=== PATIENT | female | born 1945 | race African-American/Black ===

== ENCOUNTER 2016-12-28 09:26 | Emergency (ER) | payer MEDICARE ==
[~2016-12-28] VITALS: Ht 154.9 cm; Wt 55.8 kg
[~2016-12-28 09:26] MED LIST: LANS30CA PO; LISI1TAB7 PO
[2016-12-28] MEDS ORDERED: MECLIZINE HCL 12.5 MG TABLET. PO ONE (10:15)
--- NOTE | 2016-12-28 10:18 | PHYS DOC ---
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 Patient states she has dizziness when she turns corners. Patient also states she has increase dizziness when turning her head from the right to straight ahead. Patient has a history of HTN in which she has taken her BP medication this morning. She denies blurred vision, headache, SOA or chest pain. Patient states she has not taken anything for the dizziness. Review of Systems Review of Systems Constitutional: Denies fever or chills [] Eyes: Denies change in visual acuity, redness, or eye pain [] HENT: Denies nasal congestion or sore throat. C/o right ear buzzing Respiratory: Denies cough or shortness of breath [] Cardiovascular: No additional information not addressed in HPI [] GI: Denies abdominal pain, nausea, vomiting, bloody stools or diarrhea [] : Denies dysuria or hematuria [] Musculoskeletal: Denies back pain or joint pain [] Integument: Denies rash or skin lesions [] Neurologic: Denies headache, focal weakness or sensory changes. C/o dizziness Endocrine: Denies polyuria or polydipsia [] Current Medications Current Medications Current Medications Medications (Trade) Dose Ordered Sig/Angeles Start Time Stop Time Status Last Admin Dose Admin Meclizine HCl (Antivert) 25 mg 1X ONCE 12/28/16 10:15 12/28/16 10:16 DC 12/28/16 10:32 25 MG Allergies Allergies Allergies Coded Allergies Type Severity Reaction Last Updated Verified lactose Allergy Intermediate 03/17/14 Yes Physical Exam Physical Exam Constitutional: Well developed, well nourished, no acute distress, non-toxic appearance. [] HENT: Normocephalic, atraumatic, bilateral external ears normal, oropharynx moist, no oral exudates, nose normal. Bilateral TM normal, throat normal, no post nasal drip noted Eyes: PERRLA, EOMI, conjunctiva normal, no discharge. [] Neck: Normal range of motion, no tenderness, supple, no stridor. [] Cardiovascular:Heart rate regular rhythm, no murmur [] Lungs & Thorax: Bilateral breath sounds clear to auscultation [] Skin: Warm, dry, no erythema, no rash. [] Back: No tenderness Extremities: No tenderness, no cyanosis, no clubbing, ROM intact, no edema. [] Neurologic: Alert and oriented X 3, normal motor function, normal sensory function, no focal deficits noted. No nystagmus noted, dizziness noted with turning head from the right to straight forward. Psychologic: Affect normal, judgement normal, mood normal. [] Current Patient Data Vital Signs Vital Signs Date Time Temp Pulse Resp B/P (MAP) Pulse Ox O2 Delivery O2 Flow Rate FiO2 12/28/16 09:32 97.9 98 18 164/98 (120) 98 Room Air 97.9 Lab Values Laboratory Tests Test 12/28/16 10:22 12/28/16 10:50 White Blood Count 3.4 x10^3/uL (4.0-11.0) L Red Blood Count 4.52 x10^6/uL (3.50-5.40) Hemoglobin 11.8 g/dL (12.0-15.5) L Hematocrit 36.9 % (36.0-47.0) Mean Corpuscular Volume 82 fL (79-100) Mean Corpuscular Hemoglobin 26 pg (25-35) Mean Corpuscular Hemoglobin Concent 32 g/dL (31-37) Red Cell Distribution Width 15.8 % (11.5-14.5) H Platelet Count 346 x10^3/uL (140-400) Neutrophils (%) (Auto) 49 % (31-73) Lymphocytes (%) (Auto) 41 % (24-48) Monocytes (%) (Auto) 7 % (0-9) Eosinophils (%) (Auto) 2 % (0-3) Basophils (%) (Auto) 1 % (0-3) Neutrophils # (Auto) 1.7 x10^3uL (1.8-7.7) L Lymphocytes # (Auto) 1.4 x10^3/uL (1.0-4.8) Monocytes # (Auto) 0.2 x10^3/uL (0.0-1.1) Eosinophils # (Auto) 0.1 x10^3/uL (0.0-0.7) Basophils # (Auto) 0.0 x10^3/uL (0.0-0.2) Sodium Level 141 mmol/L (136-145) Potassium Level 3.6 mmol/L (3.5-5.1) Chloride Level 104 mmol/L (98-107) Carbon Dioxide Level 29 mmol/L (21-32) Anion Gap 8 (6-14) Blood Urea Nitrogen 16 mg/dL (7-20) Creatinine 0.7 mg/dL (0.6-1.0) Estimated GFR (Cockcroft-Gault) 99.2 BUN/Creatinine Ratio 23 (6-20) H Glucose Level 99 mg/dL (70-99) Calcium Level 9.2 mg/dL (8.5-10.1) Total Bilirubin 0.2 mg/dL (0.2-1.0) Aspartate Amino Transferase (AST) 20 U/L (15-37) Alanine Aminotransferase (ALT) 19 U/L (14-59) Alkaline Phosphatase 66 U/L (46-116) Troponin I Quantitative < 0.017 ng/mL (0.000-0.055) Total Protein 6.8 g/dL (6.4-8.2) Albumin 3.6 g/dL (3.4-5.0) Albumin/Globulin Ratio 1.1 (1.0-1.7) Urine Collection Type Unknown Urine Color Yellow Urine Clarity Clear Urine pH 6.5 Urine Specific [place] 1.020 Urine Protein 100 mg/dL (NEG-TRACE) Urine Glucose (UA) Negative mg/dL (NEG) Urine Ketones (Stick) Negative mg/dL (NEG) Urine Blood Negative (NEG) Urine Nitrite Negative (NEG) Urine Bilirubin Negative (NEG) Urine Urobilinogen Dipstick 0.2 mg/dL (0.2 mg/dL) Urine Leukocyte Esterase Trace (NEG) Urine RBC 0 /HPF (0-2) Urine WBC Rare /HPF (0-4) Urine Squamous Epithelial Cells Occ /LPF Urine Bacteria 0 /HPF (0-FEW) Urine Mucus Slight /LPF Laboratory Tests 12/28/16 10:22 Laboratory Tests 12/28/16 10:22 EKG EKG EKG completed with HR 61 SR noted no STEMI per Dr Turner[] Radiology/Procedures Radiology/Procedures [][facility] [address] [place] [address] IMAGING REPORT Signed PATIENT: VERNA MURPHY ACCOUNT: [id number] : 1945 LOCATION: ER AGE: 71 SEX: F EXAM STATUS: REG ER ORD. PHYSICIAN: NISREEN TORRES APRN REASON: right ear buzzing, dizziness PROCEDURE: CT HEAD WO CONTRAST INDICATION: right ear buzzing, dizziness COMPARISON: None. TECHNIQUE: Axial CT images obtained through the head without intravenous contrast. FINDINGS: No intracranial hemorrhage. No midline shift. Basal cisterns patents. Ventricles and sulci are globally prominent. Holliday white differentiation is maintained without evidence of acute ischemia to large vessel territory. No acute osseous abnormality. Orbits and paranasal sinuses unremarkable. Scattered foci of low attenuation within the white matter. IMPRESSION: 1. No acute intracranial hemorrhage. 2. Scattered regions of low attenuation within the white matter. Non-specific in nature but frequently secondary to small vessel ischemic disease. Other possible causes include sequela of demyelination or migraine. If there is clinical concern for acute cause MRI could better evaluate for acuity. 3. Prominence of ventricles and sulci which is frequently secondary to age related volume loss. PQRS Compliance Statement: One or more of the following individualized dose reduction techniques were utilized for this examination: 1. Automated exposure control 2. Adjustment of the mA and/or kV according to patient size 3. Use of iterative reconstruction technique DICTATED and SIGNED BY: ADELA LOUIS MD DATE: 12/28/16 1034 CC: NISREEN TORRES APRN; BRANDT CHRISTINE Course & Med Decision Making Course & Med Decision Making Pertinent Labs and Imaging studies reviewed. (See chart for details) CT scan, CBC, CMP normal. UA positive for UTI patient will be placed on Keflex. Recommended to drink plenty of fluids such as water and cranberry juice. Avoid cranberry juice cocktail, carbonated beverages, caffeine, alcohol and citrus fruits. Patient was provided with meclizine for dizziness in which patient states has helped. Plan is to discharge patient home with meclizine she was instructed this medication may cause drowsiness do not take if you need to be alert and oriented. Patients BP within normal limit, Patient states she still has come buzzing that comes and goes. Patient was provided with signs and symptoms to return to emergency department. Patient agrees with discharge instructions, treatment regimen and followup recommendations, [] Ely Disclaimer Carloson Disclaimer This electronic medical record was generated, in whole or in part, using a voice recognition dictation system. Departure Departure Impression: Primary Impression: Dizziness Additional Impression: UTI (urinary tract infection) Disposition: 01 HOME, SELF-CARE Condition: STABLE Referrals: BRANDT CHRISTINE (PCP) Patient Instructions: Dizziness, [id number], Urinary Tract Infection, Easy-to -Read Additional Instructions: Activity as tolerated Make sure when you are getting up to ambulate do so slowly to prevent falls Medication as prescribed, meclizine will cause drowsiness do not take if you need to be alert and oriented Drink plenty of fluids such as water and cranberry juice. Avoid primary juice cocktail, carbonated beverages, caffeine, alcohol, and citrus fruits as is considered irritants to the bladder. Anabiotic's as prescribed. Followup with primary care provider in 3-5 days Return to emergency department as needed for signs and symptoms that become worse. Scripts Cephalexin (CEPHALEXIN) 500 Mg Tablet 1 TAB PO BID, #14 TAB Prov: NISREEN TORRES APRN 12/28/16 Meclizine Hcl (MECLIZINE HCL) 25 Mg Tablet 1 TAB PO PRN TID, #30 TAB Prov: NISREEN TORRES APRN 12/28/16 Problem Qualifiers NISREEN TORRES APRN Dec 28, 2016 10:18
--- NOTE | 2016-12-28 10:41 | RAD ---
INDICATION: right ear buzzing, dizziness COMPARISON: None. TECHNIQUE: Axial CT images obtained through the head without intravenous contrast. FINDINGS: No intracranial hemorrhage. No midline shift. Basal cisterns patents. Ventricles and sulci are globally prominent. Holliday white differentiation is maintained without evidence of acute ischemia to large vessel territory. No acute osseous abnormality. Orbits and paranasal sinuses unremarkable. Scattered foci of low attenuation within the white matter. IMPRESSION: 1. No acute intracranial hemorrhage. 2. Scattered regions of low attenuation within the white matter. Non-specific in nature but frequently secondary to small vessel ischemic disease. Other possible causes include sequela of demyelination or migraine. If there is clinical concern for acute cause MRI could better evaluate for acuity. 3. Prominence of ventricles and sulci which is frequently secondary to age related volume loss. PQRS Compliance Statement: One or more of the following individualized dose reduction techniques were utilized for this examination: 1. Automated exposure control 2. Adjustment of the mA and/or kV according to patient size 3. Use of iterative reconstruction technique
[2016-12-28 10:47] LABS: CALCIUM 9.2 mg/dL (8.5-10.1); CREATININE 0.7 mg/dL (0.6-1.0); GFR 99.2; POTASSIUM 3.6 mmol/L (3.5-5.1)
[2016-12-28 10:48] LABS: BASO % 1 % (0-3); EOS % 2 % (0-3); HEMATOCRIT 36.9 % (36.0-47.0); HEMOGLOBIN 11.8 g/dL (12.0-15.5); LYMPH # 1.4 x10^3/uL (1.0-4.8); LYMPH % 41 % (24-48); MEAN CORPUSCULAR HEMOGLOBIN 26 pg (25-35); MEAN CORPUSCULAR HGB CONC 32 g/dL (31-37); MEAN CORPUSCULAR VOLUME 82 fL (79-100); MONO % 7 % (0-9); NEUT % 49 % (31-73); PLATELET COUNT 346 x10^3/uL (140-400); RED BLOOD COUNT 4.52 x10^6/uL (3.50-5.40); RED CELL DISTRIBUTION WIDTH 15.8 % (11.5-14.5); WHITE BLOOD COUNT 3.4 x10^3/uL (4.0-11.0)
[2016-12-28 10:53] LABS: ALBUMIN 3.6 g/dL (3.4-5.0); ALBUMIN/GLOBULIN RATIO 1.1 (1.0-1.7); TOTAL BILIRUBIN 0.2 mg/dL (0.2-1.0); TOTAL PROTEIN 6.8 g/dL (6.4-8.2)
[2016-12-28 11:00] VITALS: BP 156/74
[2016-12-28 11:21] LABS: BILIRUBIN,URINE NEGATIVE (NEG); GLUCOSE,URINE NEGATIVE (NEG); NITRITE,URINE NEGATIVE (NEG); PH,URINE 6.5; PROTEIN,URINE 100 mg/dL (NEG-TRACE); UROBILINOGEN,URINE 0.2 mg/dL (0.2 mg/dL)
[2016-12-28] MEDS ORDERED: MECL25TA3 PO (11:29)
[2016-12-28 11:35] LABS: BACTERIA,URINE 0 /HPF (0-FEW); RBC,URINE 0 /HPF (0-2); SQUAMOUS EPITHELIAL CELL,UR OCC /LPF; WBC,URINE RARE /HPF (0-4)
[2016-12-28] MEDS ORDERED: CEPH500T PO (11:44)
--- NOTE | 2016-12-28 14:04 | EKG ---
[facility] [address] [place] [address] Test Date: 2016-12-28 Test Time: 10:07:45 Pat Name: VERNA MURPHY Department: Room: Gender: F Studio Assistant: : 1945 Requested By: NISREEN TORRES Order Number: [id number] Reading MD: Measurements Intervals [place] Rate: 61 P: -24 [place]: 240 QRS: -3 QRSD: 82 T: 95 QT: 442 QTc: 446 Interpretive Statements SINUS RHYTHM PROLONGED [place] INTERVAL LEFTWARD AXIS QRS(T) CONTOUR ABNORMALITY CANNOT RULE OUT ANTEROSEPTAL MYOCARDIAL DAMAGE RI6.01 Unconfirmed report No previous ECG available for comparison
== END 2016-12-28 11:56 | disposition home or self-care (01) ==
LOC: ER 09:26
DX: R42 Dizziness and giddiness (principal); N39.0 Urinary tract infection, site not specified; H93.91 Unspecified disorder of right ear; K21.9 Gastro-esophageal reflux disease without esophagitis; I10 Essential (primary) hypertension; Z90.710 Acquired absence of both cervix and uterus; Z91.011 Allergy to milk products; Z79.899 Other long term (current) drug therapy
CPT/HCPCS: 36415; 70450; 80053; 81001; 84484; 85027; 87086; 93005; 99285; J8597

== ENCOUNTER 2020-09-20 10:54 | Emergency (ER) | payer MEDICARE ==
[~2020-09-20] VITALS: Ht 153.7 cm; Wt 56.3 kg
[~2020-09-20 10:54] MED LIST changes: +CEPH500T PO; +LISI1TAB20 PO; -LISI1TAB7 PO; +MECL-75 PO
[2020-09-20 12:09] VITALS: BP 165/100
--- NOTE | 2020-09-20 12:33 | PHYS DOC ---
Past Medical History Past Medical History: Gallstones, GERD, Hypertension Past Surgical History: Hysterectomy, Other Additional Past Surgical Histo: GALLSTONES REMOVED, CARPAL TUNNEL Smoking Status: Never Smoker Alcohol Use: None Drug Use: None General Adult EDM: Chief Complaint: FOREIGNBODY EAR HPI: HPI: Patient is a 75 year old female who presents with states couple days ago she was outside working in the yard when a bug flew into her right ear. She states that she got the bug out but was worried there is water in the ear. She states that her ear feels " funny". Patient denies any ear pain or drainage from the ear or loss of hearing. She denies any kind of fever or nasal congestion. Patient has a history of GERD, gallstones, hypertension, hysterectomy, carpal tunnel surgery. Review of Systems: Review of Systems: Constitutional: Denies fever or chills. [] Eyes: Denies change in visual acuity. [] HENT: Denies nasal congestion or sore throat. +Foreign body in ear [] Respiratory: Denies cough or shortness of breath. [] Cardiovascular: Denies chest pain or edema. [] GI: Denies abdominal pain, nausea, vomiting, bloody stools or diarrhea. [] : Denies dysuria. [] Musculoskeletal: Denies back pain or joint pain. [] Integument: Denies rash. [] Neurologic: Denies headache, focal weakness or sensory changes. [] Endocrine: Denies polyuria or polydipsia. [] Lymphatic: Denies swollen glands. [] Psychiatric: Denies depression or anxiety. [] Heart Score: C/O Chest Pain: No Risk Factors: Risk Factors: DM, Current or recent (<one month) smoker, HTN, HLP, family history of CAD, obesity. Risk Scores: Score 0 - 3: 2.5% MACE over next 6 weeks - Discharge Home Score 4 - 6: 20.3% MACE over next 6 weeks - Admit for Clinical Observation Score 7 - 10: 72.7% MACE over next 6 weeks - Early Invasive Strategies Allergies: Allergies: Allergies Coded Allergies Type Severity Reaction Last Updated Verified lactose Adverse Reaction Intermediate nausea and vomiting 09/20/20 Yes Physical Exam: PE: Constitutional: Well developed, well nourished, no acute distress, non-toxic appearance. [] HENT: Normocephalic, atraumatic, bilateral external ears normal, oropharynx moist, no oral exudates, nose normal. [] Eyes: PERRLA, EOMI, conjunctiva normal, no discharge. [] Neck: Normal range of motion, no tenderness, supple, no stridor. [] Cardiovascular:Heart rate regular rhythm, no murmur [] Lungs & Thorax: Bilateral breath sounds clear to auscultation [] Abdomen: Bowel sounds normal, soft, no tenderness, no masses, no pulsatile masses. [] Skin: Warm, dry, no erythema, no rash. [] Back: No tenderness, no CVA tenderness. [] Extremities: No tenderness, no cyanosis, no clubbing, ROM intact, no edema. [] Neurologic: Alert and oriented X 3, normal motor function, normal sensory function, no focal deficits noted. [] Psychologic: Affect normal, judgement normal, mood normal. Normal physical exam [] Current Patient Data: Vital Signs: Vital Signs Date Time Temp Pulse Resp B/P (MAP) Pulse Ox O2 Delivery O2 Flow Rate FiO2 09/20/20 12:09 98.2 69 18 165/100 (121) 98 Room Air 98.2 EKG: EKG: [] Radiology/Procedures: Radiology/Procedures: [] Course & Med Decision Making: Course & Med Decision Making Pertinent Labs and Imaging studies reviewed. (See chart for details) See HPI. Alert and oriented x4. Amatory with steady gait. Speaks in full clear sentences. Skin pink warm and dry. Afebrile. Bilateral ears are clear, nonreddened and tympanic are intact. No foreign body seen in ears. [] Dragon Disclaimer: Dragon Disclaimer: This electronic medical record was generated, in whole or in part, using a voice recognition dictation system. Departure Departure Impression: Primary Impression: Ear problem Qualified Codes: H93.91 - Unspecified disorder of right ear Disposition: 01 DC HOME SELF CARE/HOMELESS Condition: STABLE Referrals: BRANDT CHRISITNE (PCP) Patient Instructions: Medical Screening Exam Additional Instructions: Follow-up with primary care physician if needed. NISREEN JAMES APRN Sep 20, 2020 12:33
== END 2020-09-20 12:39 | disposition home or self-care (01) ==
LOC: ER 10:54
DX: H93.91 Unspecified disorder of right ear (principal); K21.9 Gastro-esophageal reflux disease without esophagitis; I10 Essential (primary) hypertension; Z87.442 Personal history of urinary calculi; Z90.710 Acquired absence of both cervix and uterus; Z98.890 Other specified postprocedural states
CPT/HCPCS: 99281